=== PATIENT | male | born 1965 | race African-American/Black ===

== ENCOUNTER 2019-03-17 10:40 | Emergency (ER) | payer SELFPAY ==
[2019-03-17] MEDS ORDERED: Aspirin 325 MG TAB ONE (11:28)
[2019-03-17 11:31] LABS: #Eosinphils 0.2 thou/uL (0.0-0.7); #Lymphocytes 2.5 thou/uL (1.20-3.40); #Monocytes 0.7 thou/uL (0.11-0.59); #Neutrophils 6.5 thou/uL (1.40-6.50); %Basophils 0.3 % (0.0-1.0); %Eosinophils 2.2 % (0.0-10.0); %Lymphocytes 25.4 % (21.0-51.0); %Monocytes 6.6 % (0.0-10.0); %Neutrophils 65.5 % (42.0-75.0); Hemoglobin 14.9 g/dL (14.0-18.0); Mean Corpuscular HGB CONC 32.5 g/dL (32.0-36.0); Mean Corpuscular Hemoglobin 25.6 pg (27.0-31.0); Mean Corpuscular Volume 78.8 fL (78.0-98.0); Mean Platelet Volume 10.3 fL (7.4-10.4); Platelet Count 215 thou/uL (130-400); RBC Distribution Width 16.4 % (11.5-14.5); Red Blood Cell (RBC) Count 5.83 mill/uL (4.70-6.10); White Blood Cell (WBC) Count 9.9 thou/uL (4.8-10.8)
[2019-03-17 11:56] LABS: ALT (SGPT) 14 U/L (8-55); AST (SGOT) 16 U/L (5-34); Alkaline Phosphatase 95 U/L (40-150); Anion Gap 14 mmol/L (10-20); BUN (Urea Nitrogen) 13 mg/dL (8.4-25.7); Bilirubin, Total 0.5 mg/dL (0.2-1.2); Calc. Creatinine Clearance 0 mL/min (70-130); Carbon Dioxide 22 mmol/L (22-29); Chloride 105 mmol/L (98-107); Estimated GFR-MDRD 65; Glucose 97 mg/dL (70-105); Lipase 17 U/L (8-78); Sodium 137 mmol/L (136-145)
--- NOTE | 2019-03-17 12:16 | RAD ---
CHEST 2 VIEWS: Date: 03/17/19 HISTORY: Cough. FINDINGS: Large, abnormal opacity involving almost the entire right upper lobe, but certainly could represent e xtensive lobar pneumonia. Heart size is normal. The left lung is clear. No significant pleural effusi on. IMPRESSION: Extensive abnormal alveolar opacity in the right upper lobe, which certainly could represent extensiv e right upper lobe lobar pneumonia. Treatment and short-term follow-up for complete clearing is recom mended. POS: OFF
--- NOTE | 2019-03-17 13:08 | CT ---
CT OF THE CHEST WITH IV CONTRAST: 03/17/19 COMPARISON: None. HISTORY: Productive cough. TECHNIQUE: Axial CT imaging at 5 mm intervals from the thoracic inlet through the upper abdomen with IV contrast . Coronal reformatted imaging obtained. FINDINGS: No axillary lymphadenopathy is noted. There is an enlarged lymph node in the pretracheal region on axial image 22 measuring 1.3 cm. No lef t hilar lymphadenopathy. On image 27, there is an enlarged right hilar lymph node measuring 1.9 cm. This is in continuity with a large mass lesion within the right lung apex posteriorly measuring 8.5 x 9.0 x 11.0 cm. This abuts the superior, posterior and lateral pleura within the right lung apex and abuts the left aspect of t he mediastinum at the level of the superior vena cava, inseparable from the azygos vein. This mass p robably invades the distal aspect of the right main stem bronchus with marked stenosis and probable i nvasion of the bronchus supplying the right upper lobe. Findings are highly concerning for bronchogen ic carcinoma with malignant adenopathy. Limited assessment of the upper abdomen appears grossly unremarkable. The liver is not completely stephanie ged on this exam. No discrete adrenal mass is identified. No pleural, pericardial, or mediastinal fluid is seen. There is no pneumothorax on either side. In addition to the dominant right upper lobe mass mentioned above, there is a right upper lobe nodule measuring 5 mm on axial image 21. There is a nodule within the anterior/lateral aspect of the right middle lobe measuring 7 mm. There is a small nodule in the superior segment of the right lower lobe o n image 29 measuring 6 mm. The left lung appears grossly unremarkable. Review of the osseous structures demonstrates no discrete lytic or blastic lesion. IMPRESSION: Dominant soft tissue mass in the right lung apex highly suspicious for bronchogenic carcinoma. Probab le metastatic lymphadenopathy in the right paratracheal region and right hilum. Additional nonspecific right sided pulmonary nodules. Results called to Renate Ortega, 12:35 p.m., 03/17/19. Code CR POS: TPC
[2019-03-17] MEDS ORDERED: ISOVUE-370 76%-LOCM 1 ML ONE (13:57)
--- NOTE | 2019-03-20 11:05 | EKG ---
Test Reason : Blood Pressure : / mmHG Vent. Rate : 081 BPM Atrial Rate : 081 BPM P-R Int : 144 ms QRS Dur : 090 ms QT Int : 360 ms P-R-T Axes : 041 039 040 degrees QTc Int : 418 ms Normal sinus rhythm Normal ECG Confirmed by SHAWNA STATON ([id number]), senior editor ISHA PRADHAN ([id number]) on 03/20/2019 11:05:44 AM Referred By: Confirmed By:SHAWNA STATON
== END 2019-03-17 13:08 | disposition home or self-care (01) ==
LOC: ERS 10:40
DX: R91.8 Other nonspecific abnormal finding of lung field (principal); I10 Essential (primary) hypertension; F31.9 Bipolar disorder, unspecified; F17.210 Nicotine dependence, cigarettes, uncomplicated; Z79.899 Other long term (current) drug therapy
CPT/HCPCS: 36415; 71046; 71260; 80053; 83690; 84484; 85025; 93005; Q9966

== ENCOUNTER 2019-04-09 11:33 | Day surgery (SDC) | payer MEDICAID ==
[2019-04-09] MEDS ORDERED: Fentanyl 100 MCG/2 ML VIAL ONE ×2 (11:41→14:50)
--- NOTE | 2019-04-09 15:25 | HP ---
REASON FOR CONSULTATION: Pulmonary mass. HISTORY OF PRESENT ILLNESS: The patient is a very pleasant 54-year-old male with past medical history significant for tobacco abuse. All told , he has a [id number] history of smoking. He presents to the clinic today because he was referred to the Oncology Clinic. That being said, no tissue has ever been obtained. He was redirected here. He denies any current fevers, chills, nausea , or vomiting. He has been coughing for several weeks now. He is losing a little bit of weight. He denies having any hemoptysis. He is bringing up pale yellow phlegm. He does have dyspnea that limits his activity, and wheezing. For this reason, he went to the emergency department, was treated for an acute episode of bronchitis. He is currently on some prednisone and antibiotic. There was a CT scan that was done at that location, demonstrating a large pulmonary mass, as well as mediastinal lymphadenopathy. This is yet to be sampled. PAST MEDICAL HISTORY: 1. Hypertension. 2. Tobacco abuse. 3. COPD/emphysema. 4. Pulmonary mass. PAST SURGICAL HISTORY: Right rotator cuff surgery. SOCIAL HISTORY: He denies significant alcohol use. He previously had used some cocaine. He has never used any IV street drugs. He has a [id number] history of smoking and continues to smoke about a half a pack on a daily basis. He denies any exposure to chemicals, dust, asbestos, or tuberculosis. FAMILY HISTORY: noncontributory. ALLERGIES: NO KNOWN DRUG ALLERGIES. MEDICATIONS: 1. Hydrochlorothiazide 25 mg p.o. daily. 2. Prednisone 20 mg p.o. daily, times a brief course. 3. Azithromycin 250 mg p.o. daily, times a brief course. 4. Tessalon Perles 100 mg p.o. 3 times daily as needed. REVIEW OF SYSTEMS: General, head, ears, eyes, nose, throat, cardiovascular, respiratory, GI, , musculoskeletal, neurologic, and skin is negative except as mentioned in the HPI. PHYSICAL EXAMINATION: VITAL SIGNS: Afebrile, pulse 75, respirations 18, and saturation 94% on room air. GENERAL: The patient is awake and alert, in no apparent distress. LUNGS: Decent air entry. There is a prolonged expiratory phase and rhonchi present. The wheezing seems to be louder on the right and is present on both inhalation and exhalation. No rhonchi or crackles are appreciated. HEART: Normal rate, regular. ABDOMEN: Soft, nontender, and nondistended. Bowel sounds are positive. MUSCULOSKELETAL: No cyanosis or clubbing. No pitting in bilateral lower extremities. NEUROLOGIC: Grossly nonfocal. ASSESSMENT: 1. Pulmonary mass. 2. Mediastinal lymphadenopathy. 3. Tobacco abuse, ongoing. 4. Chronic obstructive pulmonary disease. DISCUSSION AND PLAN: I will give him a 2-week trial of Anoro. If this helps his with his breathing, he will continue it, indefinitely. We are going to schedule for him to have a bronchoscopy and endoscopic bronchial ultrasound as soon as possible. If we can do it this afternoon, it will be done then. I will have him return to clinic next , so we can review the results of the pathology. Pulmonary/ Critical Care will follow closely. 70 minutes have been devoted to this patient in various activities. I personally reviewed all imaging studies and laboratory data noted within this document. For fifty percent of this time, I was interacting with the patient in clinic or coordinating care with the care team. Job ID: [id number] [facility]
--- NOTE | 2019-04-10 01:02 | OP ---
DATE OF PROCEDURE: 04/09/2019 SERVICE: Pulmonary Medicine. PROCEDURES PERFORMED: 1. Fiberoptic bronchoscopy. a. Endoscopic bronchial-guided transbronchial needle aspiration of R4, R2. b. Visual airway inspection. c. Endobronchial brush of the right upper lobe. d. Bronchial wash of the right lung. e. Endobronchial biopsies of the right upper lobe. PREPROCEDURE DIAGNOSES: 1. Pulmonary mass. 2. Mediastinal lymphadenopathy. POSTPROCEDURE DIAGNOSES: 1. Pulmonary mass. 2. Mediastinal lymphadenopathy. PROCEDURE BANDAGE WRAPPING MACHINE OPERATOR: Terrence Pinedo MD MEDICATIONS USED: For list of medications, refer to Anesthesia documentation. PREANESTHESIA ASSESSMENT: H and P had been performed. The patient's medications and allergies were reviewed. Informed consent was obtained after discussing the risks, benefits, and rationale for performing the procedure as well as alternative options. DESCRIPTION OF PROCEDURE: A time-out was performed identifying the correct patient and procedure with name and date of . After induction of anesthesia, an endoscopic bronchial ultrasound Olympus bronchoscope was introduced through the endotracheal tube and into the tracheobronchial tree. The bronchoscope was withdrawn to the trachea and a inocencia survey was performed. There was an R10 lesion that was behind a pulsating artery. As such, I did not have a safe approach to sample this node. The R4 node, and R2 node were sampled with endoscopic bronchial ultrasound-guided approach. No significant bleeding was present post biopsy. This bronchoscope was subsequently removed and switched out for a diagnostic fiberoptic bronchoscope. The diagnostic scope was advanced into the trachea. Tracheobronchial tree inspection was carried out with clear identification of the right middle lobe, right lower lobe, left upper lobe, lingula, and left lower lobe. The right upper lobe had a fungating white mass present. It was friable. There was 0.5 to 1 cm of distance between the mass and the takeoff of the right upper lobe. Bronchial wash was obtained during the procedure. Endobronchial brushing and endobronchial biopsies were obtained from the right upper lobe mass. Hemostasis was verified and the bronchoscope was subsequently removed from the patient. FINDINGS: 1. Secretions were heavy and thin. They were clear in color. 2. Endobronchial mass was identified, fungating out of the right upper lobe bronchus. The brush and biopsy forceps would not pass distal to this mass. There was under 1 cm of distance from the mass to the takeoff of the right upper lobe. 3. Zuleika appeared sharp. 4. Rapid on-site pathology demonstrated lymphocytes on all passes. No malignant cells were identified. SPECIMENS OBTAINED: 1. Gram stain and culture on bronchial wash, pathology on brush, wash, and endobronchial biopsy. 2. Fine-needle aspiration of station R4, R2 for cytology with a cell block obtained at station R4. COMPLICATIONS: None. ESTIMATED BLOOD LOSS: 2 mL. DISPOSITION: The patient will be discharged home when he meets criteria in the postanesthesia care unit. He will return to clinic as previously directed. FLUOROSCOPY TIME: None. Job ID: [id number] [facility]
== END 2019-04-09 16:20 | disposition home or self-care (01) ==
LOC: SDC 11:33
PROVIDERS: ATTEND Internal Medicine
DX: C34.11 Malignant neoplasm of upper lobe, right bronchus or lung (principal); R59.0 Localized enlarged lymph nodes; J43.9 Emphysema, unspecified; F17.210 Nicotine dependence, cigarettes, uncomplicated; I10 Essential (primary) hypertension; Z79.899 Other long term (current) drug therapy
CPT/HCPCS: 87070; 87205; 88112; 88172; 88173; 88177; 88305; 88312; 88341; 88342; J3010

== ENCOUNTER 2019-04-15 08:46 | Outpatient (CLI) | payer MEDICAID ==
--- NOTE | 2019-04-15 09:13 | RAD ---
2 views of the chest: 04/15/2019 COMPARISON: 03/17/2019 HISTORY: Shortness of breath FINDINGS: As seen on the prior examination, there is a large mass filling the right lung apex. This m ass measures 10.7 cm in craniocaudal dimension and 9.7 cm in transverse dimension. It is better assessed on chest CT performed 03/17/2019. No pneumothorax. Right lung base is unremarkable. Left norberto thorax is unremarkable. IMPRESSION: Stable large mass in the right upper lobe/right lung apex.
== END 2019-04-15 08:47 | disposition home or self-care (01) ==
LOC: RAD 08:46
PROVIDERS: ATTEND Internal Medicine
DX: R06.00 Dyspnea, unspecified (principal); R91.8 Other nonspecific abnormal finding of lung field
CPT/HCPCS: 71046

== ENCOUNTER 2019-06-21 13:36 | Outpatient (CLI) | payer MEDICAID ==
--- NOTE | 2019-06-21 13:53 | PET ---
Radionucleotide PET scan with CT attenuation correction HISTORY: Non-small cell lung cancer. Initial staging. FINDINGS: Physiologic uptake of radiotracer throughout the enteric system and along each urinary trac t. The very large heterogeneous soft tissue density mass associated with the right upper lobe shows a maximum SUV of 16.4. The slightly enlarged right paratracheal lymph node shows maximum SUV of 3.7. Adrenal glands but not hypermetabolic. No other abnormal areas of increased radiotracer uptake are ap parent. Within the mid intra-abdominal fat just anterior to the right renal hilum, an area of increased radiotracer uptake is noted. It is centered within the fat and correlates with misregistrat ion activity from the nearby bowel, as there is evidence of motion. There is calcification throughout the arterial structures. IMPRESSION: Large hypermetabolic right upper lobe lung mass with hypermetabolic right paratracheal ly mph node. No evidence of distal metastases. Atherosclerosis.
== END 2019-06-21 13:37 | disposition home or self-care (01) ==
LOC: PET 13:36
PROVIDERS: ATTEND Physician Assistant
DX: C34.90 Malignant neoplasm of unspecified part of unspecified bronchus or lung (principal); R91.8 Other nonspecific abnormal finding of lung field
CPT/HCPCS: 78815; A9552

== ENCOUNTER 2019-07-06 08:58 | Outpatient (CLI) | payer MEDICAID, OTHER ==
--- NOTE | 2019-07-06 10:55 | MRI ---
EXAM: MRI of the brain without and with contrast HISTORY: Lung cancer. Evaluate for intracranial metastatic disease COMPARISON: None TECHNIQUE: Multiplanar multisequence MR images were obtained of the brain without and with IV contras t. FINDINGS: There are scattered foci of high T2/FLAIR signal in the subcortical and periventricular white matter, likely secondary to small vessel ischemic disease. No restricted diffusion. No abnormal enhancement. No hydronephrosis. No extra-axial fluid collection or intracranial hemorrhage. The expected flow voids are present. Corpus callosum, pituitary, and craniocervical junction are within normal limits. The calvarium and overlying soft tissues are unremarkable. The paranasal sinuses and mastoid air cells are well aerated. IMPRESSION: No evidence of intracranial metastatic disease
== END 2019-07-06 08:59 | disposition home or self-care (01) ==
LOC: MRI 08:58
PROVIDERS: ATTEND Internal Medicine
DX: C34.90 Malignant neoplasm of unspecified part of unspecified bronchus or lung (principal)
CPT/HCPCS: 70553

== ENCOUNTER 2021-04-09 12:21 | Outpatient (CLI) | payer OTHER | END 2021-04-09 12:22 | disposition home or self-care (01) | LOC: BICRAD 12:21 | PROVIDERS: ATTEND Internal Medicine | DX: R06.00 Dyspnea, unspecified (principal); R91.8 Other nonspecific abnormal finding of lung field | CPT/HCPCS: 71046 ==

== ENCOUNTER 2021-11-19 08:36 | Day surgery (SDC) | payer OTHER ==
[2021-11-16 12:27] VITALS: BMI 39.2
[2021-11-19 08:58] LABS: #Basophils 0.1 thou/uL (0.0-0.2); #Eosinphils 0.1 thou/uL (0.0-0.7); #Monocytes 0.5 thou/uL (0.11-0.59); #Neutrophils 4.6 thou/uL (1.40-6.50); %Basophils 0.8 % (0.0-1.0); %Eosinophils 1.4 % (0.0-10.0); %Lymphocytes 27.3 % (21.0-51.0); %Monocytes 6.6 % (0.0-10.0); %Neutrophils 63.8 % (42.0-75.0); Hemoglobin 14.1 g/dL (14.0-18.0); Mean Corpuscular HGB CONC 30.2 g/dL (32.0-36.0); Mean Corpuscular Hemoglobin 26.1 pg (27.0-31.0); Mean Corpuscular Volume 86.4 fL (78.0-98.0); Platelet Count 227 thou/uL (130-400); RBC Distribution Width 17.4 % (11.5-14.5); Red Blood Cell (RBC) Count 5.39 mill/uL (4.70-6.10); White Blood Cell (WBC) Count 7.2 thou/uL (4.8-10.8)
[2021-11-19 09:06] LABS: PTT 68.9 sec (22.9-36.1); Prothrombin Time 13.1 sec (12.0-14.7)
[2021-11-19 10:56] VITALS: BP 136/100; TEMP 97
== END 2021-11-19 10:35 | disposition home or self-care (01) ==
LOC: CT 08:36
PROVIDERS: ATTEND Internal Medicine Hematology & Oncology
DX: R91.8 Other nonspecific abnormal finding of lung field (principal); C34.11 Malignant neoplasm of upper lobe, right bronchus or lung; J44.9 Chronic obstructive pulmonary disease, unspecified; I10 Essential (primary) hypertension; F17.210 Nicotine dependence, cigarettes, uncomplicated; Z53.20 Procedure and treatment not carried out because of patient's decision for unspecified reasons; Z79.84 Long term (current) use of oral hypoglycemic drugs; Z79.890 Hormone replacement therapy; Z79.899 Other long term (current) drug therapy
CPT/HCPCS: 76380; 85025; 85610; 85730

== ENCOUNTER 2022-01-29 08:00 | Day surgery (SDC) | payer OTHER ==
[2022-01-24 10:46] VITALS: BMI 38.0
== END 2022-01-29 08:34 | disposition home or self-care (01) ==
LOC: SDC 08:00
PROVIDERS: ATTEND Internal Medicine
DX: C34.11 Malignant neoplasm of upper lobe, right bronchus or lung (principal); Z53.09 Procedure and treatment not carried out because of other contraindication; Z79.84 Long term (current) use of oral hypoglycemic drugs; Z79.890 Hormone replacement therapy; Z79.899 Other long term (current) drug therapy; Z88.4 Allergy status to anesthetic agent
CPT/HCPCS: J7620

== ENCOUNTER 2022-02-14 08:47 | Day surgery (SDC) | payer OTHER ==
[2022-02-12 16:14] VITALS: BMI 40.1
[2022-02-14] MEDS ORDERED: PROPOFOL 200 MG/20 ML VIAL ONE (09:00)
[2022-02-14] MEDS ORDERED: Ketorolac Tromethamine 30 MG/ML VIAL ONE (09:00)
[2022-02-14] MEDS ORDERED: Rocuronium Bromide 10 MG/ML (10ML VIAL) ONE (09:00)
[2022-02-14] MEDS ORDERED: Succinylcholine 200 MG/10 ml SYRINGE FS ONE (09:00)
[2022-02-14] MEDS ORDERED: Metoclopramide HCl 10 MG/2 ML VIAL ONE (09:00)
[2022-02-14] MEDS ORDERED: Ondansetron PF 4 MG/2 ML Vial ONE (09:00)
[2022-02-14] MEDS ORDERED: Glycopyrrolate 0.2 MG/ML 5 ML SYRINGE ONE (09:00)
== END 2022-02-14 12:08 | disposition home or self-care (01) ==
LOC: SDC 08:47
PROVIDERS: ATTEND Internal Medicine
PROC: 07B73ZX Excision of Thorax Lymphatic, Percutaneous Approach, Diagnostic (ICD-10-PCS; principal; 2022-02-14)
DX: R59.0 Localized enlarged lymph nodes (principal); C34.11 Malignant neoplasm of upper lobe, right bronchus or lung; Z87.891 Personal history of nicotine dependence; Z79.84 Long term (current) use of oral hypoglycemic drugs; Z79.890 Hormone replacement therapy; Z79.899 Other long term (current) drug therapy; Z88.4 Allergy status to anesthetic agent
CPT/HCPCS: 88173; 88305; J1885; J2405; J2704; J2710; J2765; J7620

== ENCOUNTER 2022-03-27 08:21 | Day surgery (SDC) | payer OTHER ==
[2022-03-26 10:16] VITALS: BMI 40.1
[2022-03-27] MEDS ORDERED: Lidocaine 2% Jelly 5 ML TUBE ONE ×2 (11:36→11:40)
[2022-03-27] MEDS ORDERED: fentaNYL Citrate/PF 100 MCG/2 ML SYRINGE ONE (11:36)
[2022-03-27] MEDS ORDERED: SUGAMMADEX SODIUM 200 MG/2 ML VIAL ONE (11:37)
[2022-03-27] MEDS ORDERED: Lidocaine 1% PF 5 ML VIAL ONE (11:40)
[2022-03-27] MEDS ORDERED: Ondansetron PF 4 MG/2 ML Vial ONE (12:41)
[2022-03-27] MEDS ORDERED: PROPOFOL 200 MG/20 ML VIAL ONE (12:41)
[2022-03-27] MEDS ORDERED: Dexamethasone 20 MG/5 ML VIAL ONE (12:41)
[2022-03-27] MEDS ORDERED: Ketorolac Tromethamine 30 MG/ML VIAL ONE (12:41)
[2022-03-27] MEDS ORDERED: Rocuronium Bromide 10 MG/ML (10ML VIAL) ONE (12:41)
== END 2022-03-27 15:25 | disposition home or self-care (01) ==
LOC: SDC 08:21
PROVIDERS: ATTEND Internal Medicine
PROC: 0BDC8ZX Extraction of Right Upper Lung Lobe, Via Natural or Artificial Opening Endoscopic, Diagnostic (ICD-10-PCS; principal; 2022-03-27)
PROC: 0BBC8ZX Excision of Right Upper Lung Lobe, Via Natural or Artificial Opening Endoscopic, Diagnostic (ICD-10-PCS; principal; 2022-03-27)
DX: C34.11 Malignant neoplasm of upper lobe, right bronchus or lung (principal); F17.210 Nicotine dependence, cigarettes, uncomplicated; G40.909 Epilepsy, unspecified, not intractable, without status epilepticus; E11.9 Type 2 diabetes mellitus without complications; I10 Essential (primary) hypertension; E66.01 Morbid (severe) obesity due to excess calories; Z68.41 Body mass index [BMI] 40.0-44.9, adult; Z79.84 Long term (current) use of oral hypoglycemic drugs; Z79.890 Hormone replacement therapy; Z79.899 Other long term (current) drug therapy; Z88.4 Allergy status to anesthetic agent
CPT/HCPCS: 71045; 88112; 88305; 88341; 88342; J1100; J1885; J2405; J2704; J7620

== ENCOUNTER 2022-04-18 12:30 | Outpatient (CLI) | payer OTHER | END 2022-04-18 12:31 | disposition home or self-care (01) | LOC: PET 12:30 | PROVIDERS: ATTEND Internal Medicine Hematology & Oncology | DX: C34.11 Malignant neoplasm of upper lobe, right bronchus or lung (principal) | CPT/HCPCS: 78815; A9552 ==

== ENCOUNTER 2022-07-15 13:09 | Outpatient (CLI) | payer OTHER | END 2022-07-15 13:10 | disposition home or self-care (01) | LOC: RAD 13:09 | PROVIDERS: ATTEND Internal Medicine | DX: R06.00 Dyspnea, unspecified (principal); C34.11 Malignant neoplasm of upper lobe, right bronchus or lung; D50.0 Iron deficiency anemia secondary to blood loss (chronic) | CPT/HCPCS: 36415; 71046; 80053; 82248; 83615; 84100; 84439; 84443; 84550 ==